=== PATIENT | female | born 1965 | race Caucasian/White ===

== ENCOUNTER 2021-02-12 17:10 | Emergency (ER) | payer OTHER ==
[2021-02-12] MEDS ORDERED: LODINE CAP 300300 MG PO (21:03)
[2021-02-12] MEDS ORDERED: CEPHALEXIN500 MG PO (21:03)
== END 2021-02-12 21:40 | disposition home or self-care (01) ==
LOC: ER1 17:10
DX: S61.411A Laceration without foreign body of right hand, initial encounter (principal); S83.92XA Sprain of unspecified site of left knee, initial encounter; S70.02XA Contusion of left hip, initial encounter; F17.210 Nicotine dependence, cigarettes, uncomplicated; W19.XXXA Unspecified fall, initial encounter
CPT/HCPCS: 73130; 73502; 73562; 90471; 90715; 99283